=== PATIENT | male | born 1995 | race Caucasian/White ===

== ENCOUNTER 2016-10-09 18:14 | Emergency (ER) | payer BC, OTHER ==
[~2016-10-09] VITALS: Ht 172.7 cm; Wt 86.0 kg
[~2016-10-09 18:14] MED LIST: ONDA4TAB7 SL
[2016-10-09 18:29] VITALS: TEMP 36.6; Ht 172.7 cm; Wt 86.0 kg
[2016-10-09] MEDS ORDERED: AMPH20TA2 PO (19:14)
[2016-10-09 20:12] VITALS: O2SAT 97
[2016-10-09 20:14] LABS: BASO % 0.6 %; BASO ABS # 0.03 K/uL (0-0.2); COMPLETE YES; HEMATOCRIT 42.1 % (42-52); IG% 0.2 %; LYMPH % 25.5 %; LYMPH ABS # 1.28 K/uL (1.2-3.4); MEAN CELL VOLUME 89.8 fL (80-100); MEAN CORPUSCULAR HGB CONC 36.8 g/dl (32-36); MEAN PLATELET VOLUME 10.7 fL (7.4-10.4); MONO % 7.8 %; NEUT % 65.9 %; PLATELET COUNT 219 K/uL (130-400); RED BLOOD COUNT 4.69 M/uL (4.7-6.1); WHITE BLOOD COUNT 5.01 K/uL (4.8-10.8)
[2016-10-09 20:18] LABS: ALT/SGPT 47 U/L (12-78); BLOOD UREA NITROGEN 8 mg/dl (7-18); CALCIUM 9.8 mg/dl (8.5-10.1); CARBON DIOXIDE 26 mmol/L (21-32); CHLORIDE 104 mmol/L (98-107); CREATININE 0.97 mg/dl (0.60-1.40); GLUCOSE 94 mg/dl (70-99); POTASSIUM 3.3 mmol/L (3.5-5.1); SODIUM 140 mmol/L (136-145)
[2016-10-09 20:28] LABS: ALB/GLOB RATIO 1.3 (0.9-2); ALKALINE PHOSPHATASE 105 U/L (45-117); AST/SGOT 41 U/L (15-37)
--- NOTE | 2016-10-09 20:29 | DIAGNOSTIC IMAGING REPORT ---
HEAD CT NONCONTRAST CT DOSE: 614.27 mGy.cm HISTORY: Fell, hypertensive TECHNIQUE: Multiaxial CT images of the head were performed without the use of intravenous contrast. Automated exposure control was utilized for this study. Comparison: None. Findings: The paranasal sinuses and mastoid air cells are clear. The calvarium and skull base are intact. The ventricles and sulci are within normal limits. There is no mass, hematoma, midline shift, or acute infarct. Impression: No acute intracranial abnormality. Electronically signed by: Oscar Mora M.D. 10/09/2016 8:27 PM Dictated Date/Time: 10/09/2016 8:22 PM
[2016-10-09] MEDS ORDERED: POTASSIUM CHLORIDE 10 MEQ TABCR PO STA (21:55)
--- NOTE | 2016-10-09 22:06 | EMERGENCY ROOM VISIT NOTE ---
History First contact with patient: 19:37 Chief Complaint: HYPERTENSION Stated Complaint: HYPERTENSION, REFERRED BY [facility] History of Present Illness The patient is a 21 year old male who presents to the Emergency Room via private vehicle coming by friends with complaints of "hypertension, referred by [facility]". The patient states that around 3 or 3:15 PM today he felt like his jaw had locked up and he was going to faint. This was during class and then he went back to his desk and walked outside to go home and felt better. He states that as soon as he walked through the doorway into his apartment he felt dizzy again and then went to [facility] for evaluation. He states then he came here as he was referred here due to his high blood pressure. He does have a family history of high blood pressure but none personally. He denies any history of diabetes, chest pain, shortness of breath, fevers, chills, any dizzy-like symptoms now. He states he does feel slightly shaky. He is not experiencing any pain. Review of Systems A complete 10-point Review of Systems was discussed with the patient, with pertinent positives and negatives listed in the History of Present Illness. All remaining Review of Systems questions can be considered negative unless otherwise specified. Past Medical/Surgical History Medical Problems: (1) Asthma Family History FH: heart disease Hypertension Social History Smoking Status: Never Smoker Alcohol Use: occasionally Marital Status: single Occupation Status: [employer] student Current/Historical Medications Scheduled Amphetamine-Dextroamphetamine 20MG (Adderall 20MG), 20 MG PO DAILY Allergies Coded Allergies: Sulfa Antibiotics (Verified Allergy, Severe, Itchiness, blurred vision, 08/15) Penicillins (Verified Allergy, Unknown, rash, 10/09/16) Physical Exam Vital Signs Date Time Temp Pulse Resp B/P Pulse Ox O2 Delivery O2 Flow Rate FiO2 10/09/16 22:29 82 16 169/99 98 Room Air 10/09/16 21:22 160/104 10/09/16 20:58 85 18 177/107 96 Room Air 10/09/16 20:12 75 18 166/112 97 Room Air 79 166/101 82 169/110 10/09/16 20:12 97 Room Air 10/09/16 18:29 36.6 89 20 173/105 93 Room Air Physical Exam VITAL SIGNS - Vital signs and nursing notes were reviewed. Patient is afebrile , hypertensive at 173/105, non-tachycardic and is saturating at 93% on room air. GENERAL -21-year-old male appearing his stated age who is in no acute distress. Communicates well with provider and answers questions appropriately. SKIN - Without rashes. HEAD - NC/AT. No coyle signs or raccoon's eyes. EYES - PERRL with EOMI bilaterally. Sclera anicteric. Palpebral conjunctiva pink and moist with no injection noted. EARS - No deformities of external structures noted on gross examination bilaterally. No hemotympanum External auditory canals without discharge or otorrhea. Tympanic membranes pearly dave without retraction or bulging. No fluid or purulent material visualized behind the TM. Handle of malleus, umbo, cone of light, pars tensa/flaccid all easily visualized. NOSE - Midline and without cyanosis. No epistaxis or purulent drainage noted. Septum midline without deviation or septal hematoma noted. MOUTH/OROPHARYNX - Without perioral cyanosis. Buccal mucosa pink and moist and without leukoplakia. Tongue midline with equal elevation of palate bilaterally. No tonsillar hypertrophy, erythema, or exudates noted. Good dentition noted. NECK - Neck with FROM. Supple to palpation. No lymphadenopathy noted. No nuchal rigidity. No C-spine tenderness. LUNGS - Chest wall symmetric without accessory muscle use, intercostals retractions, or central cyanosis. Normal vesicular breath sounds CTA B/L. No wheezes, rales, or rhonchi appreciated. CARDIAC - RRR with S1/S2. No murmur, rubs, or gallops appreciated. ABDOMEN - Abdominal contour without pulsations or visible masses. BS normoactive all four quadrants. No tenderness, palpable masses, hepatosplenomegaly, or ascites noted. EXTREMITIES - No clubbing or peripheral cyanosis. No pretibial edema present. Patient is vascular intact. +5/5 strength noted in UE/LE bilaterally. NEUROLOGIC - Cranial nerves II through XII grossly intact. Sensory intact to light touch throughout. PSYCH - A&Ox3 and cooperates fully with examiner. Pt is very pleasant and interacts well with examiner. Medical Decision & Procedures ER Provider Diagnostic Interpretation: HEAD CT NONCONTRAST CT DOSE: 614.27 mGy.cm HISTORY: Fell, hypertensive TECHNIQUE: Multiaxial CT images of the head were performed without the use of intravenous contrast. Automated exposure control was utilized for this study. Comparison: None. Findings: The paranasal sinuses and mastoid air cells are clear. The calvarium and skull base are intact. The ventricles and sulci are within normal limits. There is no mass, hematoma, midline shift, or acute infarct. Impression: No acute intracranial abnormality. Electronically signed by: Oscar Mora M.D. 10/09/2016 8:27 PM Dictated Date/Time: 10/09/2016 8:22 PM Laboratory Results 10/09/16 19:00 Red Blood Count 4.69, Mean Corpuscular Volume 89.8, Mean Corpuscular Hemoglobin 33.0, Mean Corpuscular Hemoglobin Concent 36.8, Mean Platelet Volume 10.7, Neutrophils (%) (Auto) 65.9, Lymphocytes (%) (Auto) 25.5, Monocytes (%) (Auto) 7.8, Eosinophils (%) (Auto) 0.0, Basophils (%) (Auto) 0.6, Neutrophils # (Auto) 3.30, Lymphocytes # (Auto) 1.28, Monocytes # (Auto) 0.39, Eosinophils # (Auto) 0.00, Basophils # (Auto) 0.03 10/09/16 19:00 Test 10/09/16 19:00 White Blood Count 5.01 K/uL (4.8-10.8) Red Blood Count 4.69 M/uL (4.7-6.1) Hemoglobin 15.5 g/dL (14.0-18.0) Hematocrit 42.1 % (42-52) Mean Corpuscular Volume 89.8 fL (80-100) Mean Corpuscular Hemoglobin 33.0 pg (25-34) Mean Corpuscular Hemoglobin Concent 36.8 g/dl (32-36) Platelet Count 219 K/uL (130-400) Mean Platelet Volume 10.7 fL (7.4-10.4) Neutrophils (%) (Auto) 65.9 % Lymphocytes (%) (Auto) 25.5 % Monocytes (%) (Auto) 7.8 % Eosinophils (%) (Auto) 0.0 % Basophils (%) (Auto) 0.6 % Neutrophils # (Auto) 3.30 K/uL (1.4-6.5) Lymphocytes # (Auto) 1.28 K/uL (1.2-3.4) Monocytes # (Auto) 0.39 K/uL (0.11-0.59) Eosinophils # (Auto) 0.00 K/uL (0-0.5) Basophils # (Auto) 0.03 K/uL (0-0.2) RDW Standard Deviation 38.5 fL (36.4-46.3) RDW Coefficient of Variation 12.0 % (11.5-14.5) Immature Granulocyte % (Auto) 0.2 % Immature Granulocyte # (Auto) 0.01 K/uL (0.00-0.02) D-Dimer < 190 ug/L FEU (0-500) Anion Gap 10.0 mmol/L (3-11) Est Creatinine Clear Calc Drug Dose 127.4 ml/min Estimated GFR () 127.9 Estimated GFR (Non- 110.4 BUN/Creatinine Ratio 8.0 (10-20) Calcium Level 9.8 mg/dl (8.5-10.1) Total Bilirubin 0.6 mg/dl (0.2-1) Aspartate Amino Transf (AST/SGOT) 41 U/L (15-37) Alanine Aminotransferase (ALT/SGPT) 47 U/L (12-78) Alkaline Phosphatase 105 U/L (45-117) Troponin I < 0.015 ng/ml (0-0.045) Total Protein 8.4 gm/dl (6.4-8.2) Albumin 4.7 gm/dl (3.4-5.0) Globulin 3.7 gm/dl (2.5-4.0) Albumin/Globulin Ratio 1.3 (0.9-2) Thyroid Stimulating Hormone (TSH) 1.170 uIu/ml (0.300-4.500) Medications Administered Medications (Trade) Dose Ordered Sig/Jef Route Start Time Stop Time Status Last Admin Dose Admin Potassium Chloride (Klor-Con M10) 20 meq NOW STAT PO 10/09/16 21:55 10/09/16 21:57 DC 10/09/16 22:25 20 MEQ Medical Decision Patient was seen and evaluated as above. After obtaining a thorough history and physical examination IV access is obtained and a CBC, CMP, EKG stat, troponin, d-dimer, TSH, UA clean catch culture if indicated, orthostatic vital signs as well as a CT of the head without contrast secondary to subjective and objective examination findings. The patient asked if I would speak with his father via phone while I was in evaluating the patient. I spoke with the patient's father who is a plant senior manager. He states that he is concerned about his son and wants to know if his son told me about the fall he had the other day. I had at this point not elicited this being history and this raised my concern for intracranial injury. CT scan is even more warranted in this case. In talking with the father, we discussed certain labs that I was going to order and I told him we would keep up-to-date with his sons condition. The patient at this time is asymptomatic. In review of the patient's blood work at this time his CBC reveals no leukocytosis but slight anemia. D-dimer was negative. Potassium was slightly low at 3.3 no other elect slight abnormality. The BUN/ creatinine ratio slightly low at 8.0. The AST was elevated at 41 and this was discussed with the patient and very likely be from his recent alcohol use which was elicited the history by my attending who also personally evaluated the patient. Total protein was also elevated at 8.4. TSH was within normal limits. Patient's EKG revealed a normal sinus rhythm rate of 74 bpm with sinus arrhythmia. No ectopy or ischemic change noted. I do not suspect any emergent cardiac event at this time. With d-dimer being negative I do not suspect pulmonary embolism. I suspect the patient likely has high blood pressure currently secondary to his lifestyle to include poor eating habits as well as large alcohol consumption. He was educated upon this. With patient consent my attending then discussed the case with the patient's father. The patient is to follow-up with Dr. Berumen, of cardiology. It was stated that the patient's father used to be in practice with his plant senior manager. The patient is to follow up regarding this. He was provided with 20 mEq of potassium chloride as well as educated upon foods high in potassium to raise this. He was thoroughly educated upon tonight findings by both myself and my attending personally. He was instructed upon management and even to follow-up with [facility] to obtain serial blood pressure checks. He verbalizes understanding. Patient was strongly encouraged to change his dietary lifestyle. He was instructed to limit alcohol consumption. He was educated upon worrisome symptoms in which to return. He had questions answered prior to discharge and was discharged home in good condition. In evaluation treatment this patient the following differential diagnoses were entertained: Acute myocardial infarction, pulmonary embolism, acute intracranial hemorrhage, among others. Impression Primary Impression: Near syncope Additional Impressions: Hypokalemia Elevated blood pressure reading Departure Information Dispostion Home / Self-Care Condition GOOD Referrals [facility] (PCP) James Berumen M.D. Patient Instructions A Signature Page, Hypokalemia Dc, My [facility] Additional Instructions You were seen in the emergency department for a near syncopal event. CT of your head was within normal limits. Blood work revealed a slight anemia. This was of the red blood cell count. Red blood cell count was 4.69. Below limit of normal is 4.70. This is not significant. You're hemoglobin and hematocrit are stable. Your d-dimer was negative. Your potassium was slightly low at 3.3. Your BUN/creatinine ratio was slightly low at 8.0. Your AST was elevated at 41. Total protein was high at 8.4. Your troponin was negative. TSH was within normal limits. Your EKG revealed a normal sinus rhythm with sinus arrhythmia rate of 74 bpm. No ectopy or ischemic change noted. This does not rule out additional damage to the head. You were found to be hypertensive. You were given the number for plant senior manager. Please call this number first thing tomorrow morning. Our complex case manager will also call to help schedule appointment. If you are not able to be seen within 1 week please visit daily at bedtime for follow-up so you may get blood pressure rechecks. Please limit the alcohol intake. Please limit caloric intake. Please try to eat a well-balanced healthy diet low insult. Please eat plenty of bananas and oranges to help raise your potassium level. You're given one dose orally of potassium here. Please note strenuous exercise until evaluated by the plant senior manager. Please return to the emergency department with any new/concerning symptoms. Problem Qualifiers
[2016-10-09 22:29] VITALS: BP 169/99; PULSE 82; O2SAT 98
--- NOTE | 2016-10-09 22:48 | EMERGENCY ROOM VISIT NOTE ---
ED Visit Note First contact with patient: 19:37 The patient was seen and examined with Sj Owens PA-C. I agree with the history, physical and findings. Please see the note for disposition and details. The patient had a normal ECG. His head CT was negative. The patient had an unremarkable CBC. Mild hyperkalemia noted on A panel. The patient was given oral potassium for this. He had no evidence of orthostasis. His d-dimer and cardiac markers were negative. The patient is hypertensive. He admitted to drinking a significant amount of alcohol the last few days. He only ate a bagel and had 2 cups of coffee all day today prior to his near syncopal event while standing in class and then the second one going home. The patient has a strong family history of hypertension. I discussed the case with the patient's permission with his father who is a lap checker. He notes the patient has been gaining weight and does not follow a good diet and exercise regimen. He asked me to convey this to him about the importance of healthy lifestyle. The patient will follow-up with [facility] for blood pressure checks. He was also referred to cardiology for further evaluation and possible initiation of antihypertensive medication. The patient father was a former partner of our lap checker here, Dr. Berumen, and felt comfortable with the patient following up with him in the office. The patient was given the information. He will also have his information sent to the office via case management tomorrow morning. I gave my usual and customary discussion regarding this issue. The patient was very pleased with the treatment and was discharged in stable condition for close outpatient follow-up. If he worsens in any way he will come back to the emergency department for reevaluation.
== END 2016-10-09 22:33 | disposition home or self-care (01) ==
LOC: C.EDB 18:16 → C.EDA 22:33
DX: R55 Syncope and collapse (principal); E87.6 Hypokalemia; R03.0 Elevated blood-pressure reading, without diagnosis of hypertension; Z79.899 Other long term (current) drug therapy; Z82.49 Family history of ischemic heart disease and other diseases of the circulatory system